=== PATIENT | female | born 1970 | race Caucasian/White ===

== ENCOUNTER → 2019-02-15 | Day surgery (SDC) | payer BC ==
[2019-02-13 10:34] VITALS: BMI 25.4
[~2019-02-15] MED LIST: LACTATED RINGERS 1,000 ML IV ONE; LACTATED RINGERS 1,000 ML IV SCH; LIDOCAINE 1% 20 ML VIAL (10MG/ML) FOR IV START INTRADERMA PRN; PROPOFOL 10 MG/ML 20 ML VIAL IV ONE
[2019-02-15 07:14] VITALS: TEMP 97.8
--- NOTE | 2019-02-15 07:54 | P.GSHP ---
History of Present Illness H&P Date: 02/15/19 Chief Complaint: Screening colonoscopy This a 48-year-old female presents today for screening colonoscopy. Patient denies any significant GI complaints. Past Medical History Past Medical History: Rheumatoid Arthritis (RA) Additional Past Medical History / Comment(s): SYSTEMIC LUPUS. RAYNAUD'S. IBS History of Any Multi-Drug Resistant Organisms: None Reported Past Surgical History: Appendectomy, Cholecystectomy, Hysterectomy Additional Past Surgical History / Comment(s): D & C X 2. COLONOSCOPY X3 Past Anesthesia/Blood Transfusion Reactions: Postoperative Nausea & Vomiting (PONV) Smoking Status: Never smoker - Past Family History Mother Family Medical History: Cancer Medications and Allergies Home Medications Medication Instructions Recorded Confirmed Type Amitriptyline HCl [Elavil] 10 mg PO HS 02/13/19 02/13/19 History Cholecalciferol (Vitamin D3) 2,000 unit PO HS 02/13/19 02/13/19 History [Vitamin D3] Etanercept [Enbrel] 50 mg SQ MO 02/13/19 02/13/19 History Hydroxychloroquine Sulfate 200 mg PO Q2D 02/13/19 02/13/19 History [Plaquenil] Leflunomide [Arava] 20 mg PO HS 02/13/19 02/13/19 History Allergies Allergy/AdvReac Type Severity Reaction Status Date / Time Sulfa (Sulfonamide AdvReac HEADACHES Verified 02/13/19 10:26 Antibiotics) Surgical - Exam Vital Signs Temp Pulse Resp BP Pulse Ox 97.8 F 73 18 132/63 100 02/15/19 07:10 02/15/19 07:10 02/15/19 07:10 02/15/19 07:10 02/15/19 07:10 - General well developed, well nourished, no distress - Eyes PERRL - ENT normal pinna - Neck no masses - Respiratory normal expansion - Cardiovascular Rhythm: regular - Abdomen Abdomen: soft, non tender Assessment and Plan Assessment: We'll perform screening colonoscopy.
--- NOTE | 2019-02-15 08:14 | P.OP ---
Date of Procedure: 02/15/19 Preoperative Diagnosis: Screening Colonoscopy Postoperative Diagnosis: Normal colon Procedure(s) Performed: Colonoscopy Anesthesia: JIMBO Surgeon: Rory Jackson Pathology: none sent Condition: stable Disposition: PACU Description of Procedure: PROCEDURE: The patient was placed on the endoscopy table in the lateral position. Digital rectal examination was performed which revealed no abnormalities. Flexible colonoscope was then placed in the patient's anus and passed throughout the entire colon. colon was very twisty. The ileocecal valve was visualized. The cecum, ascending, transverse, descending and sigmoid colon were normal. The rectum was normal as well. There were no masses, polyps or diverticula noted in the entire colon. SUMMARY OF FINDINGS: Normal colonoscopy.
[2019-02-15 08:22] VITALS: RESP 16
[2019-02-15 08:43] VITALS: BP 111/76; PULSE 69
== END ==
LOC: ORWHC2ENDO 06:56
PROVIDERS: ATTEND Surgery
DX: Z12.11 Encounter for screening for malignant neoplasm of colon (principal); K56.2 Volvulus; K58.9 Irritable bowel syndrome, unspecified; M06.9 Rheumatoid arthritis, unspecified; M32.9 Systemic lupus erythematosus, unspecified; I73.00 Raynaud's syndrome without gangrene; Z88.2 Allergy status to sulfonamides; Z79.899 Other long term (current) drug therapy; Z90.49 Acquired absence of other specified parts of digestive tract; Z90.710 Acquired absence of both cervix and uterus; Z80.9 Family history of malignant neoplasm, unspecified
CPT/HCPCS: J2704; G0121

== ENCOUNTER → 2023-04-11 | Outpatient (CLI) | payer BC | END | disposition home or self-care (01) | LOC: LABWHC1 15:21 | PROVIDERS: ATTEND Family Medicine | DX: K58.2 Mixed irritable bowel syndrome (principal) | CPT/HCPCS: 36415 ==